=== PATIENT | male | born 1965 | race Caucasian/White ===

== ENCOUNTER 2018-07-03 19:29 | Emergency (ER) | payer MEDICAID ==
[~2018-07-03] VITALS: Ht 177.8 cm; Wt 115.0 kg
[~2018-07-03 19:29] MED LIST: ASPI-614 PO; LISI5TAB7 PO; METO25TA91 PO
[2018-07-03] MEDS ORDERED: AMLO10TA6 PO (20:05)
[2018-07-03] MEDS ORDERED: PANT20TA3 PO (20:05)
[2018-07-03] MEDS ORDERED: ATOR20TA9 PO (20:05)
[2018-07-03] MEDS ORDERED: SILD25TA PO (20:05)
[2018-07-03] MEDS ORDERED: MULTIVITAMIN MENS (20:05)
[2018-07-03] MEDS ORDERED: METO50TA82 PO (20:05)
[2018-07-03] MEDS ORDERED: LISI-170 PO (20:05)
[2018-07-03 20:35] VITALS: BP 130/89
[2018-07-03 20:42] LABS: BASOPHILS # (AUTO) 0.08 x10^3/uL (0-0.1); BASOPHILS % (AUTO) 1 % (0-1); EOSINOPHILS # (AUTO) 0.39 x10^3/uL (0-0.4); EOSINOPHILS % (AUTO) 6 % (1-7); LYMPHOCYTES # (AUTO) 2.31 x10^3/uL (1-3.4); LYMPHOCYTES % (AUTO) 32 % (22-44); MD NO; MEAN CORPUSCULAR HEMOGLOBIN 28.7 pg (27.5-34.5); MEAN CORPUSCULAR HGB CONC 34.1 g/dL (33.2-36.2); MEAN CORPUSCULAR VOLUME 84.1 fL (81-97); MEAN PLATELET VOLUME 7.3 fL (7.4-10.4); MONOCYTES # (AUTO) 0.56 x10^3/uL (0.2-0.8); MONOCYTES % (AUTO) 8 % (2-9); NEUTROPHILS # (AUTO) 3.79 x10^3/uL (1.8-6.8); NEUTROPHILS % (AUTO) 53 % (42-75); PLATELET COUNT 213 x10^3/uL (130-400); RED BLOOD COUNT 5.18 x10^6/uL (4.38-5.82); RED CELL DISTRIBUTION WIDTH 13.5 % (9.4-14.8)
[2018-07-03 20:53] LABS: ALBUMIN 3.8 g/dL (3.4-5.0); ANION GAP 7 mmol/L (5-15); CALCIUM 9.1 mg/dL (8.5-10.1); CHLORIDE 110 mmol/L (98-107)
[2018-07-03 20:58] LABS: CREATININE 1.09 mg/dL (0.7-1.3); TROPONIN I < 0.015 ng/mL (0.000-0.045)
== END 2018-07-03 22:00 | disposition home or self-care (01) ==
LOC: ED 21:15
DX: R07.89 Other chest pain (principal); I25.2 Old myocardial infarction; I10 Essential (primary) hypertension; E78.00 Pure hypercholesterolemia, unspecified; K21.9 Gastro-esophageal reflux disease without esophagitis; Z98.61 Coronary angioplasty status
CPT/HCPCS: 36415; 71045; 80048; 82040; 84484; 85025; 93005; 99285